=== PATIENT | male | born 1980 | race Caucasian/White ===

== ENCOUNTER 2019-05-16 16:13 | Emergency (ER) | payer SELFPAY ==
[~2019-05-16] VITALS: Ht 165.1 cm; Wt 72.6 kg
[~2019-05-16 16:13] MED LIST: BACTRIM DS TAB1 EAC1 ORAL; IBUPROFEN600 MG PO; KEFLEX500 MG ORAL
[2019-05-16 16:32] VITALS: BP 120/77
--- NOTE | 2019-05-16 16:33 | NUR ---
ED Nurse Note: Pt cut his L index finger today 1440 today. Redness noted and dried blood. No active bleeding. Pain 5/10 Pt is not up-to-date with Tetanus vaccination. AOx4, VSS. Will cont to monitor.
[2019-05-16] MEDS ORDERED: Tetanus/Diptheria/Pertussis IM ONE (16:45)
--- NOTE | 2019-05-16 16:57 | NUR ---
ED Nurse Note: ray at bedside. Addendum: 05/16/19 at 1658 by BALA ED Nurse Note: Xray at bedside.
--- NOTE | 2019-05-16 17:49 | Emergency Room Report ---
History of Present Illness General Chief Complaint: Laceration Source: Patient Present Illness HPI 38-year-old Beninese-speaking male with no significant past medical history here complaining of pain and minimal bleeding after cutting himself at at the left index finger today. Patient is not up-to-date with his tetanus shot. Rating the pain a 5 out of 10 without radiation minimal bleeding is noted. Has full range of motion and no sensory or motor deficit noted. Denies any pain radiation, tingling and numbness. Denies all other injuries. ROS: denies: fatigue, low energy, confusion denies: nausea, vomiting, abdominal pain, urinary frequency, dysuria denies: sob, chest pain, dizziness, blurred vision, headache denies: muscle pain, tingling/numbness denies: sore throat, rhinorrea, fever, chills, ear pain denies: anxiety, depresion, SI, HI, drug use Allergies: Coded Allergies: No Known Allergies (Unverified , 12/22/13) Patient History Past Medical History: see triage record Past Surgical History: unable to obtain Pertinent Family History: none Immunizations: other - tdap given Reviewed Nursing Documentation: PMH: Agreed; PSxH: Agreed Nursing Documentation-PMH Past Medical History: No Stated History Review of Systems All Other Systems: negative except mentioned in HPI Physical Exam Vital Signs Date Time Temp Pulse Resp B/P (MAP) Pulse Ox O2 Delivery O2 Flow Rate FiO2 05/16/19 16:27 98.4 63 20 120/77 (91) 97 Room Air Sp02 EP Interpretation: reviewed, normal General Appearance: normal inspection, well appearing, no apparent distress, alert, GCS 15 Head: normocephalic, atraumatic Eyes: bilateral eye normal inspection, bilateral eye PERRL ENT: normal ENT inspection, hearing grossly normal, normal pharynx Neck: normal inspection, full range of motion, supple Respiratory: normal inspection, chest non-tender, normal breath sounds, no respiratory distress Cardiovascular #1: normal inspection, normal peripheral pulses, regular rate, rhythm, no edema, no murmur Cardiovascular #2: 2+ radial (R), 2+ radial (L) Gastrointestinal: normal inspection, non tender Rectal: deferred Genitourinary: no CVA tenderness Musculoskeletal: normal inspection, back normal, digits/nails normal Neurologic: normal inspection, alert, oriented x3, responsive Psychiatric: normal inspection, judgement/insight normal, memory normal Skin: palpation normal, laceration - L index finger Lymphatic: normal inspection, no adenopathy Procedures Laceration/Wound Repair Laceration/Wound Repair : Consent: Verbal Wound Location: upper extremity - left index finger Wound's Depth, Shape: superficial Wound Explored: clean Betadine Prep?: Yes Layer Closure?: No Sterile Dressing Applied?: Yes Splint Applied?: No Sling Applied?: No Patient Tolerated: Well Complications: None Progress Avulsion of tip of left index finger no laceration repair needed less than 0.5 cm Medical Decision Making PA Attestation All diagnoses and treatment plans were reviewed and discussed with my supervising physician Dr. Negron Diagnostic Impression: Primary Impression: Laceration of index finger ER Course 38-year-old Beninese-speaking male with no significant past medical history here complaining of pain and minimal bleeding after cutting himself at at the left index finger today. Patient is not up-to-date with his tetanus shot. Rating the pain a 5 out of 10 without radiation minimal bleeding is noted. Has full range of motion and no sensory or motor deficit noted. Denies any pain radiation, tingling and numbness. Denies all other injuries. ROS: denies: fatigue, low energy, confusion denies: nausea, vomiting, abdominal pain, urinary frequency, dysuria denies: sob, chest pain, dizziness, blurred vision, headache denies: muscle pain, tingling/numbness denies: sore throat, rhinorrea, fever, chills, ear pain denies: anxiety, depresion, SI, HI, drug use Ddx considered but are not limited to : Superficial laceration, deep laceration , tendon involvement with laceration, laceration with foreign body Vital signs: are WNL, pt. is afebrile H&PE are most consistent with: Superficial left laceration no repair needed due to missing part of the top portion of the finger( skin) ORDERS: Finger x-ray, Tdap, Augmentin, ibuprofen ED INTERVENTIONS: Tdap DISCHARGE: At this time pt. is stable for d/c to home. Will provide printed patient care instructions, and any necessary prescriptions. Care plan and follow up instructions have been discussed with the patient prior to discharge. Other X-Ray Diagnostic Results Other X-Ray Diagnostic Results : X-Ray ordered: finger # of Views/Limited Vs Complete: 3 View Indication: Pain EP Interpretation: Yes MARYANN Xray: Interpretation reviewed, by supervising MD, and agrees with findings. Interpretation: no dislocation, no soft tissue swelling, no fractures Impression: No acute disease Electronically Signed by: Gayle WOLF Scribe Text No foreign body noted Last Vital Signs Date Time Temp Pulse Resp B/P (MAP) Pulse Ox O2 Delivery O2 Flow Rate FiO2 05/16/19 16:32 98.4 63 20 120/77 97 Room Air Disposition: HOME, SELF-CARE Condition: Stable Scripts Ibuprofen* (MOTRIN*) 600 Mg Tablet 600 MG ORAL Q8H PRN for For Pain, #30 TAB 0 Refills Prov: Gayle Lagos 05/16/19 Amoxicillin/Potassium Clav 875-125* (AUGMENTIN 875-125 TABLET*) 1 Each Tablet 1 TAB ORAL TWICE A DAY for 10 Days, #20 TAB Prov: Gayle Lagos 05/16/19 Patient Instructions: Laceration Care, Adult Gayle Lagos May 16, 2019 17:49
[2019-05-16] MEDS ORDERED: IBUPROFEN600 MG ORAL (17:50)
[2019-05-16] MEDS ORDERED: AUGMENTIN 875-1 EAC1 ORAL (17:50)
[2019-05-16] MEDS ORDERED: Bacitracin Oint UD TOPIC ONE ×2 (17:52→18:00)
[2019-05-16 18:01] VITALS: BP 118/75
--- NOTE | 2019-05-16 18:01 | NUR ---
ER DISCHARGE NOTE: Patient is cleared to be discharged per ERMD, pt is aox4, on room air, with stable vital signs. pt was given dc and prescription instructions, pt was able to verbalize understanding, pt id band removed. pt is able to ambulate with steady gait. pt took all belongings.
--- NOTE | 2019-05-17 09:55 | Diagnostic Imaging Report ---
Indication: Second digit pain Technique: 3 views of the left second finger Comparison: none Findings: There is evidence of soft tissue injury to the tip of the second digit. No evidence of acute fracture. No dislocations. No radiopaque foreign body demonstrated. Impression: Evidence of distal soft tissue injury. No acute bony trauma
== END 2019-05-16 18:01 | disposition home or self-care (01) ==
LOC: EMR 17:27
DX: S61.211A Laceration without foreign body of left index finger without damage to nail, initial encounter (principal); W45.8XXA Other foreign body or object entering through skin, initial encounter; Y92.9 Unspecified place or not applicable; Z23 Encounter for immunization
CPT/HCPCS: 90471; 90715; 99283

== ENCOUNTER 2019-10-03 11:18 | Emergency (ER) | payer MEDICAID ==
[~2019-10-03] VITALS: Ht 162.6 cm; Wt 72.6 kg
[~2019-10-03 11:18] MED LIST changes: +AUGMENTIN 875-1 EAC1 ORAL; +IBUPROFEN600 MG ORAL
[2019-10-03 11:40] VITALS: BP 121/79
--- NOTE | 2019-10-03 11:40 | NUR ---
ED Nurse Note: Patient arrived to ED from home complaining of left lower back pain that radiates down his left leg starting last night. Pain is a 6-8/10, aggravated with movement. No known cause or injury. Patient AxO x 4, no s/s of acute distress.
[2019-10-03] MEDS ORDERED: HYDROcodone/Acetamin 5/325 tab ORAL ONE (12:15)
[2019-10-03] MEDS ORDERED: IBUPROFEN600 MG ORAL (12:15)
[2019-10-03] MEDS ORDERED: Ketorolac 60mg Inj IM ONE (12:15)
[2019-10-03] MEDS ORDERED: CYCLOBENZAPRINE10 MG ORAL (12:15)
[2019-10-03] MEDS ORDERED: NORCO 5-325 TA1 EACH ORAL (12:15)
[2019-10-03 12:28] VITALS: BP 121/79
--- NOTE | 2019-10-03 13:01 | Emergency Room Report ---
History of Present Illness General Chief Complaint: Lower Back Pain or Injury Source: Patient Present Illness HPI Patient washes cars for living. He states that hurt his back a couple of days ago washing cars when he lifted something. The pain is worse on his left lower back and radiates down to his leg. He denies any dysuria or difficulty with urination or urinary frequency. He denies perineal anesthesia. Denies any difficulty with bowel movements. States that the pain is worse with a straight leg raise on the left leg. Denies any fever nausea vomiting diarrhea chills. Denies any chest pain shortness of breath. No other complaints are noted. Symptoms noted to be moderate to severe. No other modifying factors. No other associated signs and symptoms. No other complaints were noted. Allergies: Coded Allergies: No Known Allergies (Unverified , 12/22/13) Patient History Past Medical History: none Past Surgical History: none Pertinent Family History: none Social History: Denies: smoking, alcohol use, drug use Reviewed Nursing Documentation: PMH: Agreed; PSxH: Agreed Nursing Documentation-PMH Past Medical History: No History, Except For Hx Cancer: Yes - testicular ca Review of Systems All Other Systems: negative except mentioned in HPI Physical Exam Vital Signs Date Time Temp Pulse Resp B/P (MAP) Pulse Ox O2 Delivery O2 Flow Rate FiO2 10/03/19 11:33 98.1 71 18 121/79 (93) 96 Room Air Sp02 EP Interpretation: reviewed, normal General Appearance: normal inspection, well appearing, no apparent distress, alert Head: atraumatic Eyes: bilateral eye normal inspection ENT: normal ENT inspection, hearing grossly normal, normal voice Neck: normal inspection, full range of motion, supple, no bony tend Respiratory: normal inspection, lungs clear, normal breath sounds, no respiratory distress, no retraction, no wheezing Cardiovascular #1: regular rate, rhythm, no edema Gastrointestinal: normal inspection, normal bowel sounds, non tender, soft, no guarding, no hernia Genitourinary: no CVA tenderness Musculoskeletal: normal inspection, back normal, other - Positive straight leg raise on the left Neurologic: alert, responsive, speech normal, normal inspection Psychiatric: normal inspection, judgement/insight normal, mood/affect normal Skin: no rash Medical Decision Making Diagnostic Impression: Primary Impression: Sciatica of left side ER Course Patient presented emergency department today complaining severe left leg pain. And back pain. Differential considerations include fracture, strain, radiculopathy, sciatica just to name a few. Patient's exam is consistent with a sciatica. Patient was given injections for pain medications. Patient was given prescription for pain medications. Please note that patient was given narcotic pain medication for lower back pain because anti-inflammatories as an outpatient had already failed. This patient failed simple [id number] medications and therefore required narcotic pain medications for control pain. Patient is advised to follow up with primary doctor in 2-3 days and return the emergency room for any worsening symptoms and as needed. Last Vital Signs Date Time Temp Pulse Resp B/P (MAP) Pulse Ox O2 Delivery O2 Flow Rate FiO2 10/03/19 11:40 98.1 18 121/79 96 Room Air 10/03/19 11:33 71 Status: improved Disposition: HOME, SELF-CARE Condition: Stable Scripts Cyclobenzaprine Hcl* (FLEXERIL*) 10 Mg Tablet 10 MG ORAL THREE TIMES A DAY, #20 TAB Prov: Rudy Dewitt MD 10/03/19 Hydrocodone Bit/Acetaminophen 5-325* (NORCO 5-325*) 1 Each Tablet 1 TAB ORAL Q6H PRN for For Pain, #20 TAB 0 Refills Prov: Rudy Dewitt MD 10/03/19 Ibuprofen* (MOTRIN*) 600 Mg Tablet 600 MG ORAL Q8H PRN for For Pain, #30 TAB 0 Refills Prov: Rudy Dewitt MD 10/03/19 Referrals: NOT CHOSEN IPA/,REFERRING (PCP) Departure Forms: Return to Work Return to Work Date: Oct 16, 2019 Patient Instructions: Back Pain, Adult Rudy Dewitt MD Oct 03, 2019 13:01
== END 2019-10-03 12:28 | disposition home or self-care (01) ==
LOC: EMR 12:10
DX: M54.32 Sciatica, left side (principal); Z85.47 Personal history of malignant neoplasm of testis
CPT/HCPCS: 96372; Z7502; 99283